=== PATIENT | female | born 1970 | race Caucasian/White ===

== ENCOUNTER 2020-03-29 08:03 | Day surgery (SDC) | payer OTHER, SELFPAY ==
[~2020-03-29] VITALS: Ht 167.6 cm; Wt 84.8 kg
[2020-03-29] MEDS ORDERED: fentaNYL citrate 0.05 MG/ML VIAL ONE (11:06)
[2020-03-29] MEDS ORDERED: LIDOCAINE 2% 100 MG/5 ML UJET TP ONE (11:06)
[2020-03-29] MEDS ORDERED: fentaNYL citrate 0.05 MG/ML VIAL IVP ONE (13:00)
== END 2020-03-29 12:12 | disposition home or self-care (01) ==
LOC: MDS 08:03 → MFCC 10:19 → MDS 12:12
PROVIDERS: ATTEND Internal Medicine Gastroenterology
DX: Z12.11 Encounter for screening for malignant neoplasm of colon (principal); Z80.0 Family history of malignant neoplasm of digestive organs; Z11.59 Encounter for screening for other viral diseases; Z90.710 Acquired absence of both cervix and uterus; Z90.49 Acquired absence of other specified parts of digestive tract; E66.9 Obesity, unspecified; Z68.30 Body mass index [BMI] 30.0-30.9, adult
CPT/HCPCS: 45378; J3010; U0003